=== PATIENT | male | born 1965 | race African-American/Black ===

== ENCOUNTER 2020-06-29 08:41 | Emergency (ER) | payer SELFPAY ==
[~2020-06-29] VITALS: Ht 190.5 cm; Wt 125.0 kg
[2020-06-29] MEDS ORDERED: HYDROMORPHONE HCL/PF 2MG/ML CPJ IM STA (09:02)
[2020-06-29 09:41] VITALS: BP 132/96
== END 2020-06-29 09:54 | disposition home or self-care (01) ==
LOC: ER 08:41
DX: M25.562 Pain in left knee (principal); E11.9 Type 2 diabetes mellitus without complications; I10 Essential (primary) hypertension; Z88.6 Allergy status to analgesic agent
CPT/HCPCS: 96372; 99283; J1170

== ENCOUNTER 2020-07-08 02:22 | Inpatient (IN) | payer SELFPAY ==
[~2020-07-08] VITALS: Ht 190.5 cm; Wt 123.0 kg
[2020-07-08] MEDS ORDERED: ONDANSETRON HCL 4MG/2ML INJ IV STA (02:48)
[2020-07-08] MEDS ORDERED: MORPHINE SULFATE 4 MG/ML CPJ (NOT FOR IM USE) IV STA ×2 (02:48→03:33)
[2020-07-08] MEDS ORDERED: SODIUM CHLORIDE 0.9% 1,000 ML IV ONE (03:00)
[2020-07-08 03:29] LABS: BASOPHILS % 0.7 % (0.0-2.0); EOSINOPHILS % 1.4 % (0.0-5.0); HEMATOCRIT. 43.6 % (42.0-52.0); HEMOGLOBIN. 14.9 g/dL (14.0-18.0); MEAN CORPUSCULAR HEMOGLOBIN 32.6 pg (28.0-32.0); MEAN CORPUSCULAR VOLUME 95.6 fL (80.0-94.0); MEAN PLATELET VOLUME 8.4 fl (7.4-10.4); MONOCYTES % 6.2 % (2.0-8.0); NEUTROPHILS % 70.7 % (40.0-76.0); PLATELET 229 x1000/uL (130-400); RED BLOOD CELL COUNT 4.56 mill/uL (4.7-6.1); RED CELL DISTRIBUTION WIDTH 13.9 % (11.6-14.6)
[2020-07-08 03:39] LABS: CHLORIDE 108 mEq/L (98-107)
[2020-07-08] MEDS ORDERED: MORPHINE SULFATE 10 MG/ML CPJ IV NR (04:00)
[2020-07-08] MEDS ORDERED: NITROGLYCERIN 0.4MG TABLET SL SL ONE ×2 (04:30→05:30)
[2020-07-08] MEDS ORDERED: IOHEXOL-350 100 ML BOTTLE ONE (05:03)
[2020-07-08 06:55] VITALS: BP 153/92
[2020-07-08] MEDS ORDERED: DOCUSATE SODIUM 100MG CAPSULE PO PRN (07:15)
[2020-07-08] MEDS ORDERED: NITROGLYCERIN 0.4MG TABLET SL SL PRN (07:15)
[2020-07-08] MEDS ORDERED: MAGNESIUM/ALUMINUM HYDROXIDE/SIMETHICONE 30ML UDC PO PRN (07:15)
[2020-07-08] MEDS ORDERED: NA PHOS,M-B/NA PHOS,DI-BA ENEMA 118ML PR PRN (07:15)
[2020-07-08] MEDS ORDERED: ENOXAPARIN 40MG/0.4ML SYR SUBCUT SCH (07:15)
[2020-07-08] MEDS ORDERED: ACETAMINOPHEN 325MG TABLET PO PRN ×2 (07:15)
[2020-07-08] MEDS ORDERED: DEXTROSE 50% WATER 50ML SYRINGE IV PRN (07:15)
[2020-07-08] MEDS ORDERED: NITROGLYCERIN OINT 1GM/INCH UDPKT TD SCH (07:15)
[2020-07-08] MEDS ORDERED: ONDANSETRON HCL 4MG/2ML INJ IV PRN (07:15)
[2020-07-08] MEDS ORDERED: IPRATROPIUM/ALBUTEROL 0.5-3(2.5)MG/3ML NEB NEB PRN (07:15)
[2020-07-08] MEDS ORDERED: GUAIFENESIN 200MG/10ML SUGAR FREE UDC PO PRN (07:15)
[2020-07-08] MEDS ORDERED: SODIUM CHLORIDE 0.9% 1,000 ML IV SCH (07:15)
[2020-07-08 07:49] LABS: ETHANOL BLOOD < 10 mg/dL
[2020-07-08 07:54] LABS: CREATINE KINASE 224 IU/L (39-308)
[2020-07-08 07:55] LABS: CREATINE KINASE MB FRACTION 1.6 ng/mL (0.5-3.6)
[2020-07-08] MEDS ORDERED: INSULIN LISPRO 100 UNITS/ML SUBCUT SCH (08:20)
[2020-07-08] MEDS ORDERED: CHOLECALCIFEROL (D3) 1000 UNIT TABLET PO SCH (09:00)
[2020-07-08] MEDS ORDERED: FAMOTIDINE 20MG TABLET PO SCH (09:00)
[2020-07-08] MEDS ORDERED: ENOXAPARIN 30MG/0.3ML SYR SUBCUT SCH (09:00)
[2020-07-08] MEDS ORDERED: ASPIRIN 325MG EC TABLET PO SCH (09:00)
[2020-07-08] MEDS ORDERED: ZINC SULFATE 220 MG ( 50 ) CAPSULE PO SCH (09:00)
[2020-07-08] MEDS ORDERED: ASCORBIC ACID 500 MG TABLET PO SCH (09:00)
[2020-07-08] MEDS ORDERED: PANTOPRAZOLE SODIUM 40 MG/VIAL IV SCH (09:00)
[2020-07-08] MEDS ORDERED: BLOOD SUGAR DIAGNOSTIC STRIP TEST SCH (09:00)
[2020-07-08 09:04] LABS: CLARITY URINE CLEAR (CLEAR); COLOR URINE YELLOW (YELLOW); KETONES URINE 1+ (NEGATIVE); LEUKOCYTE ESTERASE URINE NEGATIVE (NEGATIVE); NITRITE URINE NEGATIVE (NEGATIVE); OCCULT BLOOD URINE NEGATIVE (NEGATIVE); PH URINE 6.5 (4.5-8.0); PROTEIN URINE NEGATIVE (NEGATIVE); SPECIFIC GRAVITY URINE 1.069 (1.005-1.030); UROBILINOGEN URINE 0.2 E.U./dL (0.2-1.0)
[2020-07-08 09:19] LABS: *AMPHETAMINES SCREEN URINE NEGATIVE (NEGATIVE); *BARBITURATES SCREEN URINE NEGATIVE (NEGATIVE); *BENZODIAZEPINES SCREEN URINE NEGATIVE (NEGATIVE)
[2020-07-08 09:20] LABS: *COCAINE SCREEN URINE NEGATIVE (NEGATIVE); CANNABINOID URINE SCREEN NEGATIVE (NEGATIVE); METHADONE URINE SCREEN NEGATIVE (NEGATIVE); OPIATES URINE SCREEN PRESUMTIVE POSITIVE (NEGATIVE); PHENCYCLIDINE URINE SCREEN NEGATIVE (NEGATIVE)
[2020-07-08] MEDS ORDERED: DILTIAZEM HCL 60MG TABLET PO SCH (12:00)
[2020-07-08] MEDS ORDERED: ZOLPIDEM TARTRATE 5MG TABLET PO PRN (21:00)
== END 2020-07-08 18:26 | disposition left against medical advice (07) | DRG 203 ==
LOC: ER 02:22 → 5WST 05:37 → EDBEDREQTM 05:40 → EDBEDREQ 05:40 → ENRESERV 15:35
PROVIDERS: ADMIT Internal Medicine; ATTEND Internal Medicine
DX: M94.0 Chondrocostal junction syndrome [Tietze] (principal); E11.65 Type 2 diabetes mellitus with hyperglycemia; R07.89 Other chest pain; E11.9 Type 2 diabetes mellitus without complications; E66.9 Obesity, unspecified; G43.909 Migraine, unspecified, not intractable, without status migrainosus; I10 Essential (primary) hypertension; Z96.652 Presence of left artificial knee joint; M19.90 Unspecified osteoarthritis, unspecified site; Z76.5 Malingerer [conscious simulation]; Z79.4 Long term (current) use of insulin; Z88.6 Allergy status to analgesic agent; Z68.33 Body mass index [BMI] 33.0-33.9, adult
CPT/HCPCS: 36415; 71045; 71275; 80053; 80305; 80320; 81003; 82550; 82553; 82962; 83036; 83880; 84484; 85025; 93005; 99285; J1815; J2270; J2405; Q9967; G0480